=== PATIENT | female | born 1940 | race Caucasian/White ===

== ENCOUNTER 2017-04-22 17:23 | Inpatient (IN) | payer MEDICARE, OTHER ==
[2017-04-22] MEDS: SODIUM CHLORIDE 0.9% 1L BAG IV* (18:03)
[2017-04-22 18:30] LABS: ADD MAN DIFF? NO
[2017-04-22 18:34] LABS: BASOPHILS % 0.3 % (0.0-2.0); HEMATOCRIT 29.1 % (37.0-47.0); HEMOGLOBIN 9.6 g/dl (12.0-16.0); LYMPHOCYTES # 0.7 10^3/ul (0.8-2.9); MEAN CORPUSCULAR HEMOGLOBIN 27.7 pg (29.0-33.0); MEAN CORPUSCULAR VOLUME 83.9 fl (82.0-101.0); MEAN PLATELET VOLUME 11.7 fl (7.4-10.4); MONOCYTE # 0.2 10^3/ul (0.3-0.9); MONOCYTES % 3.3 % (0.0-11.0); NEUTROPHIL # 5.6 10^3/ul (1.6-7.5); NEUTROPHILS % 85.9 % (39.0-77.0); PLATELET COUNT 530 10^3/UL (140-415); RED BLOOD COUNT 3.47 10^6/ul (4.20-5.40); RED CELL DISTRIBUTION WIDTH 17.9 % (11.5-14.5)
[2017-04-22 18:34] LABS: WHITE BLOOD COUNT 6.6 10^3/ul (4.8-10.8)
[2017-04-22] MEDS: IBUPROFEN 600 MG TAB PO (18:34)
[2017-04-22 19:03] LABS: INR 1.14; PROTIME 14.8 Sec (11.9-14.9); PT RATIO 1.2
[2017-04-22 19:04] LABS: ALANINE AMINOTRANSFERASE 37 IU/L (13-69); ALBUMIN/GLOBULIN RATIO 1.03; ALKALINE PHOSPHATASE 51 IU/L (42-121); ANION GAP 16 (8-16); ASPARTATE AMINO TRANSFERASE 49 IU/L (15-46); BILIRUBIN,INDIRECT 0.1 mg/dl (0-1.1); BILIRUBIN,TOTAL 0.1 mg/dl (0.2-1.3); BLOOD UREA NITROGEN 11 mg/dl (7-20); CALCIUM 7.6 mg/dl (8.4-10.2); CARBON DIOXIDE 24 mmol/L (21-31); CHLORIDE 100 mmol/L (97-110); CREATININE 0.52 mg/dl (0.44-1.00); GLUCOSE 111 mg/dl (70-220); LIPASE 156 U/L (23-300); PARTIAL THROMBOPLASTIN TIME 32.4 Sec (25.0-35.0); POTASSIUM 3.5 mmol/L (3.5-5.1); SODIUM 136 mmol/L (135-144); TOTAL PROTEIN 5.9 g/dl (6.1-8.1)
[2017-04-22 19:11] LABS: LACTIC ACID 2.2 mmol/L (0.5-2.0)
[2017-04-22 19:16] LABS: TROPONIN-I 0.017 ng/ml (0.00-0.12)
[2017-04-22] MEDS: CEFTRIAXONE 1 GM/50 ML (PMX) 50 ML IVPB (19:29)
[2017-04-22] MEDS: METOPROLOL 50 MG TAB PO (20:05)
[2017-04-22] MEDS: METOPROLOL 25 MG TAB PO (20:08)
[2017-04-22 20:16] LABS: URINE BLOOD (Dip) POC 1+ (NEGATIVE); URINE GLUCOSE (Dip) POC Negative (NEGATIVE); URINE KETONES (Dip) POC Negative (NEGATIVE); URINE LEUKOCYTE EST (Dip) POC Negative (NEGATIVE); URINE NITRITE (Dip) POC Negative (NEGATIVE); URINE TOTAL PROTEIN POC Negative (NEGATIVE)
[2017-04-22 20:16] LABS: URINE PH (Dip) POC 5.5 (5.0-8.5)
[2017-04-22] MEDS ORDERED: METOPROLOL 50 MG TAB PO (20:30)
[2017-04-22 20:36] LABS: ADD UMIC YES; UR ASCORBIC ACID NEGATIVE (NEGATIVE); UR BILIRUBIN (Dip) NEGATIVE (NEGATIVE); UR BLOOD (Dip) 2+ mg/dL (NEGATIVE); UR CLARITY CLEAR (CLEAR); UR COLOR COLORLESS (YELLOW); UR GLUCOSE (Dip) NEGATIVE (NEGATIVE); UR KETONES (Dip) NEGATIVE (NEGATIVE); UR LEUKOCYTE ESTERASE (Dip) NEGATIVE Leu/ul (NEGATIVE); UR NITRITE (Dip) NEGATIVE (NEGATIVE); UR RBC 1 /HPF (0-5); UR SPECIFIC GRAVITY (Dip) 1.001 (1.003-1.030); UR TOTAL PROTEIN (Dip) NEGATIVE (NEGATIVE); UR UROBILINOGEN (Dip) NEGATIVE (NEGATIVE); UR WBC 1 /HPF (0-5)
[2017-04-22 20:45] LABS: UR BACTERIA FEW /HPF (NONE SEEN)
[2017-04-22 22:57] LABS: LACTIC ACID 0.9 mmol/L (0.5-2.0)
[2017-04-23] MEDS ORDERED: morphine 2 MG INJ IV (00:30)
[2017-04-23] MEDS ORDERED: NITROGLYCERIN (SL) 0.4 MG TAB SL (00:30)
[2017-04-23] MEDS ORDERED: NACL 0.9% 3 ML SYG IV (00:30)
[2017-04-23] MEDS ORDERED: ALBUTEROL/IPRATROPIUM (NEB) 3 ML AMP HHN (00:30)
[2017-04-23] MEDS: ONDANSETRON 4 MG INJ IV ×3 (00:39→12:20)
[2017-04-23] MEDS: SOD CHLORIDE 0.9% 1,000 ML IV ×3 (00:40→10:26)
[2017-04-23 01:01] LABS: CREATINE KINASE 40 IU/L (23-200)
[2017-04-23 01:02] LABS: LACTIC ACID 0.9 mmol/L (0.5-2.0)
[2017-04-23] MEDS: ASPIRIN (EC) 325 MG TAB PO (01:02)
[2017-04-23 01:14] LABS: CK-MB 0.81 ng/ml (0.0-2.4); TROPONIN-I 0.013 ng/ml (0.00-0.12)
[2017-04-23] MEDS: PANTOPRAZOLE (EC) 40 MG TAB PO (05:25)
[2017-04-23] MEDS: AMIODARONE 900 MG in DEXTROSE 5% 482 ML IV (06:25)
[2017-04-23] MEDS ORDERED: LEVALBUTEROL (NEB) 0.63 MG/3 ML AMP HHN (07:00)
[2017-04-23] MEDS: ASPIRIN (EC) 81 MG TAB PO (09:00)
[2017-04-23] MEDS: DICYCLOMINE 10 MG CAP PO (09:00)
[2017-04-23] MEDS: ENOXAPARIN 40 MG/0.4 ML SYG SC (09:00)
[2017-04-23] MEDS: CEFEPIME 1GM/50 ML (PMX) 50 ML IVPB (09:40)
[2017-04-23] MEDS: ACETAMINOPHEN 325 MG TAB PO (11:12)
[2017-04-23] MEDS ORDERED: LORAZEPAM 0.5 MG TAB PO (11:30)
[2017-04-23] MEDS ORDERED: BUDESONIDE (NEB) 0.5MG/2ML AMP HHN (20:00)
[2017-04-23] MEDS ORDERED: METOPROLOL 25 MG TAB PO (21:00)
[2017-04-23] MEDS ORDERED: RANITIDINE 150 MG TAB PO (21:00)
[2017-04-23] MEDS ORDERED: MECLIZINE 25 MG TAB PO ×2 (21:00)
[2017-04-24] MEDS ORDERED: INFLUENZA VIRUS VACCINE 0.5 ML (DISPENSING) IM* (09:00)
[2017-04-24] MEDS ORDERED: AMLODIPINE 5 MG TAB PO (09:00)
[2017-04-24] MEDS ORDERED: FUROSEMIDE 40 MG TAB PO (09:00)
== END 2017-04-23 15:15 | disposition left against medical advice (07) | DRG 309 ==
LOC: E/R 17:23 → MS4 20:27
PROVIDERS: Hospitalist
DX: I47.1 Supraventricular tachycardia (principal); C85.80 Other specified types of non-Hodgkin lymphoma, unspecified site; E86.0 Dehydration; D63.8 Anemia in other chronic diseases classified elsewhere; R50.9 Fever, unspecified; I10 Essential (primary) hypertension; J45.909 Unspecified asthma, uncomplicated
CPT/HCPCS: 36415; 71045; 80053; 81001; 81003; 82550; 82553; 83605; 83690; 84484; 85025; 85610; 85730; 87040; 87086; 87400; 93005; 96374; 99285-25

== ENCOUNTER 2017-05-02 15:24 | Emergency (ER) | payer MEDICARE, OTHER ==
[~2017-05-02 15:24] MED LIST: AMIODARONE 150 MG INJ; EPINEPHrine 0.1 MG/ML SYG; NA BICARBONATE 8.4% 50 ML SYG
[2017-05-02] MEDS ORDERED: AMIODARONE 900 MG in DEXTROSE 5% 482 ML IV ×2 (15:30→16:00)
[2017-05-02] MEDS: SOD CHLORIDE 0.9% 1,000 ML IV ×2 (15:56→15:57)
== END 2017-05-02 18:47 | disposition expired ==
LOC: E/R 15:24
DX: I46.9 Cardiac arrest, cause unspecified (principal); J45.909 Unspecified asthma, uncomplicated; Z79.82 Long term (current) use of aspirin
CPT/HCPCS: 31500; 71045; 92950; 94002; 99291-25